=== PATIENT | female | born 1990 | race African-American/Black ===

== ENCOUNTER 2016-05-16 12:13 | Inpatient (IN) | payer MEDICAID ==
[~2016-05-16] VITALS: Ht 157.5 cm; Wt 77.0 kg
[2016-05-16 13:40] LABS: Basophils # (auto) 0 uL; Basophils % (auto) 0.3 % (0.0-2.0); DEFINITIVE VIEW TRANSMISSION; Eosinophils # (auto) 0.3 uL; Eosinophils % (auto) 2.4 % (0.0-7.0); Hematocrit 36.3 % (36.0-46.0); Hemoglobin 11.2 g/dL (12.2-16.2); Lymphocytes # (auto) 1.7 uL; Lymphocytes % (auto) 15.1 % (10.0-50.0); Mean Corpuscular Hemoglobin 24.7 pg (28.0-32.0); Mean Corpuscular Hgb Conc. 30.9 g/dL (32.0-36.0); Mean Corpuscular Volume 80.1 fL (80.0-100.0); Mean Platelet Volume 8.2 fL (7.4-10.4); Monocytes # (auto) 0.9 uL; Monocytes % (auto) 7.6 % (0.0-12.0); Neutrophils # (auto) 8.5 uL; Neutrophils % (auto) 74.6 % (37.0-80.0); Platelet Count (auto) 376 10^3/uL (140-450); Red Cell Distribution Width 16.1 % (11.6-16.0); White Blood Cell 11.4 10^3/uL (4.4-10.8)
[2016-05-16 13:54] LABS: Albumin 2.7 g/dL (3.4-5.0); Potassium 3.6 mmol/L (3.5-5.1)
[2016-05-16 13:56] LABS: Bilirubin, Total 0.3 mg/dL (0.2-1.0); Total Protein 8.2 g/dL (6.4-8.2)
[2016-05-16] MEDS ORDERED: PIPERACILLIN-TAZOB 3.375GM 100 ML IV ONE (14:00)
[2016-05-16] MEDS ORDERED: ONDANSETRON HCL 4 MG/2 ML VIAL IV ONE (14:00)
[2016-05-16] MEDS ORDERED: SODIUM CHLORIDE 0.9% 1,000 ML IV ONE (14:00)
[2016-05-16] MEDS ORDERED: HYDROmorphone HCL 2 MG/ML VL IV ONE (14:00)
[2016-05-16] MEDS ORDERED: VANCOMYCIN 1GM/250ML D5W 250 ML IV ONE (14:00)
[2016-05-16] MEDS ORDERED: InsuLIN REG 1unit/0.01ml Soln (100units/ml) IV ONE (14:15)
[2016-05-16 17:52] LABS: Urine Bilirubin Negative (Negative); Urine Color Yellow (Yellow); Urine Ketone Negative (Negative); Urine Nitrite Negative (Negative); Urine RBC 7 /hpf (0 - 4); Urine Squamous Epithelial Cell FEW /hpf (<5)
[2016-05-16 17:53] LABS: Urine Blood 1+ /uL (Negative); Urine Glucose 4+ mg/dL (Normal)
[2016-05-16] MEDS ORDERED: TEMAZEPAM 15 MG CAP PO PRN (18:15)
[2016-05-16] MEDS ORDERED: VANCOMYCIN PER PHARMACY 0 MG IV SCH (18:15)
[2016-05-16] MEDS ORDERED: DOCUSATE SOD 100 MG CAP PO PRN (18:15)
[2016-05-16] MEDS ORDERED: DEXTROSE (50%) 50ML SYRG IV PRN (18:15)
[2016-05-16] MEDS ORDERED: ACETAMINOPHEN 325 MG TAB PO PRN (18:15)
[2016-05-16] MEDS: MORPHINE SULF INJ 2 MG/ML SYRINGE 1ML IV PRN ×2 (18:45→23:44)
[2016-05-16] MEDS: ONDANSETRON HCL 4 MG/2 ML VIAL IV PRN (18:45)
[2016-05-16 19:30] VITALS: BP 122/73
[2016-05-16 19:45] VITALS: BP 122/73
[2016-05-16] MEDS: HYDROcodone-ACET 5/325MG TAB PO PRN (20:38)
[2016-05-16] MEDS: SODIUM CHLOR 0.9% PF (SALINE LOCK) 10ML VIAL IV SCH (21:41)
[2016-05-16] MEDS: ASCORBIC ACID 500 MG TAB PO SCH (21:41)
[2016-05-16] MEDS: InsuLIN REG 1unit/0.01ml Soln (100units/ml) SC SCH (21:41)
[2016-05-16] MEDS: Boost Glucose Control 8 Ounces PO SCH (21:41)
[2016-05-16] MEDS: ACCU-CHEK COMFORT CURVE STRIP VI SCH (21:41)
[2016-05-16 21:50] VITALS: BP 100/58
[2016-05-16] MEDS: PIPERACILLIN-TAZOB 3.375GM 100 ML IV SCH (23:43)
[2016-05-17] VITALS: BP 123/71
[2016-05-17] MEDS: VANCOMYCIN 1,250 MG in D5W 5% 250 ML IV SCH ×2 (03:09→15:19)
[2016-05-17] MEDS: MORPHINE SULF INJ 2 MG/ML SYRINGE 1ML IV PRN (04:42)
[2016-05-17 05:00] VITALS: BP 132/81
[2016-05-17] MEDS: Boost Glucose Control 8 Ounces PO SCH ×4 (05:32→22:00)
[2016-05-17] MEDS: SODIUM CHLOR 0.9% PF (SALINE LOCK) 10ML VIAL IV SCH ×3 (05:46→22:00)
[2016-05-17] MEDS: PIPERACILLIN-TAZOB 3.375GM 100 ML IV SCH ×3 (05:46→18:26)
[2016-05-17] MEDS: ACCU-CHEK COMFORT CURVE STRIP VI SCH ×4 (06:14→22:00)
[2016-05-17] MEDS: InsuLIN REG 1unit/0.01ml Soln (100units/ml) SC SCH ×4 (06:24→23:08)
[2016-05-17 07:37] LABS: Basophils # (auto) 0 uL; Basophils % (auto) 0.3 % (0.0-2.0); DEFINITIVE VIEW TRANSMISSION; Eosinophils # (auto) 0.3 uL; Eosinophils % (auto) 2.8 % (0.0-7.0); Hematocrit 35.4 % (36.0-46.0); Hemoglobin 10.9 g/dL (12.2-16.2); Lymphocytes # (auto) 1.7 uL; Lymphocytes % (auto) 15.1 % (10.0-50.0); Mean Corpuscular Hemoglobin 24.6 pg (28.0-32.0); Mean Corpuscular Hgb Conc. 30.9 g/dL (32.0-36.0); Mean Corpuscular Volume 79.8 fL (80.0-100.0); Mean Platelet Volume 8.5 fL (7.4-10.4); Monocytes # (auto) 0.9 uL; Neutrophils # (auto) 8.3 uL; Neutrophils % (auto) 73.8 % (37.0-80.0); Platelet Count (auto) 350 10^3/uL (140-450); Red Cell Distribution Width 16.5 % (11.6-16.0); White Blood Cell 11.2 10^3/uL (4.4-10.8)
[2016-05-17 08:03] LABS: Albumin 2.4 g/dL (3.4-5.0); Calcium 8.7 mg/dL (8.5-10.1); Potassium 3.2 mmol/L (3.5-5.1)
[2016-05-17 08:12] LABS: Bilirubin, Total 0.4 mg/dL (0.2-1.0); Total Protein 7.7 g/dL (6.4-8.2)
[2016-05-17] MEDS: ASCORBIC ACID 500 MG TAB PO SCH ×2 (08:48→22:44)
[2016-05-17] MEDS: MULTIPLE VITAMIN TAB PO SCH (08:48)
[2016-05-17] MEDS: ZINC SULFATE 220 MG CAP PO SCH (08:48)
[2016-05-17] MEDS: HYDROcodone-ACET 5/325MG TAB PO PRN (08:49)
[2016-05-17 09:00] VITALS: BP 123/73
[2016-05-17] MEDS ORDERED: POTASSIUM CHL 20 Meq TABLET PO ONE (12:00)
[2016-05-17] MEDS: HYDROmorphone HCL 2 MG/ML VL IV PRN ×2 (12:45→18:48)
[2016-05-17 13:00] VITALS: BP 124/73
[2016-05-17 17:17] VITALS: BP 118/67
[2016-05-17] MEDS: ONDANSETRON HCL 4 MG/2 ML VIAL IV PRN (18:49)
[2016-05-17 22:00] VITALS: BP 128/69
[2016-05-17] MEDS: POTASSIUM CHL 20 Meq TABLET PO SCH (22:44)
[2016-05-18] MEDS: HYDROmorphone HCL 2 MG/ML VL IV PRN ×2 (00:04→04:15)
[2016-05-18] MEDS: ONDANSETRON HCL 4 MG/2 ML VIAL IV PRN ×3 (00:04→11:00)
[2016-05-18] MEDS: PIPERACILLIN-TAZOB 3.375GM 100 ML IV SCH ×4 (00:31→18:29)
[2016-05-18] MEDS: VANCOMYCIN 1,250 MG in D5W 5% 250 ML IV SCH (03:31)
[2016-05-18] MEDS: Boost Glucose Control 8 Ounces PO SCH ×4 (06:00→22:50)
[2016-05-18] MEDS: SODIUM CHLOR 0.9% PF (SALINE LOCK) 10ML VIAL IV SCH ×3 (06:29→22:50)
[2016-05-18] MEDS: ACCU-CHEK COMFORT CURVE STRIP VI SCH ×4 (07:00→22:51)
[2016-05-18] MEDS: InsuLIN REG 1unit/0.01ml Soln (100units/ml) SC SCH ×4 (07:07→22:55)
[2016-05-18 09:00] VITALS: BP 122/69
[2016-05-18] MEDS: ZINC SULFATE 220 MG CAP PO SCH (10:53)
[2016-05-18] MEDS: POTASSIUM CHL 20 Meq TABLET PO SCH ×2 (10:53→22:50)
[2016-05-18] MEDS: PROMETHAZINE W/CODEINE 5 ML ORAL SYRUP PO PRN ×2 (10:54→18:27)
[2016-05-18] MEDS: MULTIPLE VITAMIN TAB PO SCH (10:54)
[2016-05-18] MEDS: ASCORBIC ACID 500 MG TAB PO SCH ×2 (10:54→22:50)
[2016-05-18] MEDS ORDERED: LIDOCAINE 2%HCL (LOCAL ANESTH.) INJ 20ML MDV ONE (11:08)
[2016-05-18] MEDS ORDERED: fentaNYL CITRATE 100 MCG/2 ML VL ONE (11:24)
[2016-05-18] MEDS ORDERED: MIDAZOLAM HCL 1MG/1ML-2 ML VIAL ONE (11:32)
[2016-05-18 11:35] LABS: Basophils # (auto) 0 uL; Basophils % (auto) 0.2 % (0.0-2.0); DEFINITIVE VIEW TRANSMISSION; Eosinophils # (auto) 0.4 uL; Eosinophils % (auto) 2.9 % (0.0-7.0); Hematocrit 37.2 % (36.0-46.0); Hemoglobin 11.6 g/dL (12.2-16.2); Lymphocytes % (auto) 13.2 % (10.0-50.0); Mean Corpuscular Hemoglobin 25.1 pg (28.0-32.0); Mean Corpuscular Hgb Conc. 31.1 g/dL (32.0-36.0); Mean Corpuscular Volume 80.8 fL (80.0-100.0); Mean Platelet Volume 8.5 fL (7.4-10.4); Monocytes # (auto) 1.5 uL; Monocytes % (auto) 10.2 % (0.0-12.0); Neutrophils # (auto) 11.1 uL; Neutrophils % (auto) 73.5 % (37.0-80.0); Platelet Count (auto) 380 10^3/uL (140-450); Red Cell Distribution Width 16.3 % (11.6-16.0); White Blood Cell 15.1 10^3/uL (4.4-10.8)
[2016-05-18 11:51] LABS: INR 1.06 (0.9-1.15); Prothrombin Time 10.9 sec (9.37-12.3)
[2016-05-18 11:57] LABS: BUN/Creatinine Ratio 8.5; Calcium 9.2 mg/dL (8.5-10.1); Potassium 3.7 mmol/L (3.5-5.1)
[2016-05-18 13:38] VITALS: BP 139/82
[2016-05-18] MEDS: VANCOMYCIN 1,500 MG in D5W 5% 250 ML IV SCH (16:30)
[2016-05-18 17:26] VITALS: BP 138/82
[2016-05-18 20:00] VITALS: BP 130/77
[2016-05-18 21:13] VITALS: BP 130/77
[2016-05-19] MEDS: PIPERACILLIN-TAZOB 3.375GM 100 ML IV SCH ×2 (01:30→06:17)
[2016-05-19] MEDS: VANCOMYCIN 1,500 MG in D5W 5% 250 ML IV SCH (04:56)
[2016-05-19 05:49] VITALS: BP 130/78
[2016-05-19] MEDS: Boost Glucose Control 8 Ounces PO SCH (06:00)
[2016-05-19] MEDS: SODIUM CHLOR 0.9% PF (SALINE LOCK) 10ML VIAL IV SCH (06:18)
[2016-05-19] MEDS: ACCU-CHEK COMFORT CURVE STRIP VI SCH (06:19)
[2016-05-19] MEDS: InsuLIN REG 1unit/0.01ml Soln (100units/ml) SC SCH (06:38)
[2016-05-19 06:55] LABS: Basophils # (auto) 0 uL; Basophils % (auto) 0.3 % (0.0-2.0); DEFINITIVE VIEW TRANSMISSION; Eosinophils # (auto) 0.5 uL; Eosinophils % (auto) 4.1 % (0.0-7.0); Hematocrit 33.6 % (36.0-46.0); Hemoglobin 10.4 g/dL (12.2-16.2); Lymphocytes # (auto) 1.3 uL; Lymphocytes % (auto) 10.4 % (10.0-50.0); Mean Corpuscular Hemoglobin 24.7 pg (28.0-32.0); Mean Corpuscular Volume 79.8 fL (80.0-100.0); Mean Platelet Volume 8.8 fL (7.4-10.4); Monocytes # (auto) 1.2 uL; Monocytes % (auto) 9.2 % (0.0-12.0); Neutrophils # (auto) 9.7 uL; Platelet Count (auto) 352 10^3/uL (140-450); White Blood Cell 12.7 10^3/uL (4.4-10.8)
[2016-05-19 07:13] LABS: Potassium 3.6 mmol/L (3.5-5.1)
[2016-05-19 07:17] LABS: Albumin 2.3 g/dL (3.4-5.0); BUN/Creatinine Ratio 5.4; Calcium 8.4 mg/dL (8.5-10.1)
[2016-05-19 07:20] LABS: Bilirubin, Total 0.5 mg/dL (0.2-1.0); Total Protein 7.8 g/dL (6.4-8.2)
[2016-05-19 08:00] VITALS: BP 130/78
[2016-05-19 08:52] VITALS: BP 117/68
[2016-05-19 09:23] VITALS: BP 130/78
[2016-05-19] MEDS: PROMETHAZINE W/CODEINE 5 ML ORAL SYRUP PO PRN (09:47)
== END 2016-05-19 11:50 | disposition home or self-care (01) | DRG 385 ==
LOC: ER 12:13 → OVERFLOW 12:14 → EAST 19:26
PROVIDERS: ADMIT Internal Medicine; ATTEND Internal Medicine
DX: N61.1 Abscess of the breast and nipple (principal); E43 Unspecified severe protein-calorie malnutrition; E11.21 Type 2 diabetes mellitus with diabetic nephropathy; R05 Cough; D64.9 Anemia, unspecified; E66.9 Obesity, unspecified; E87.6 Hypokalemia; E11.65 Type 2 diabetes mellitus with hyperglycemia; Z68.31 Body mass index [BMI] 31.0-31.9, adult
CPT/HCPCS: 36415; 76642; 80048; 80053; 80202; 81001; 82962; 83036; 83540; 85025; 85610; 87040; 96365; 96366; 96367; 96375; 99291; J1815; J2250; J2405; J2543; J7060